=== PATIENT | male | born 1995 | race Caucasian/White ===

== ENCOUNTER 2016-10-12 12:47 | Emergency (ER) | payer BC ==
[2016-10-12 13:55] VITALS: BP 116/74
--- NOTE | 2016-10-12 14:54 | UC ---
Abdominal Pain Male HPI - HPI Summary HPI Summary: Pt presents with intermittent dull ache, and "bulge" in left upper pubic symphysis. X 2 weeks. Discomfort worsens with heavy lifting. Denies injury or trauma or discoloration to the area. Occasionally tenderness. - History of Current Complaint Chief Complaint: UCAbdominalPain Stated Complaint: ? HERNIA Time Seen by Provider: 10/12/16 14:42 Hx Obtained From: Patient Onset/Duration: Gradual Onset, Lasting Weeks Timing: Intermittent Episodes Lasting: Severity Initially: Mild Severity Currently: Mild Location: Suprapubic - left side Radiates: No Character: Aching, Dull Aggravating Factor(s):: Movement - heavy lifting Alleviating Factor(s): Rest, Spontaneous Resolution Associated Signs And Symptoms: Positive: Other - "bulge" - Risk Factors Testicular Torsion: Negative Cardiac Risk Factors: Negative - Allergies/Home Medications Allergies/Adverse Reactions: Allergies Allergy/AdvReac Type Severity Reaction Status Date / Time Penicillins Allergy Rash Verified 10/12/16 13:55 Home Medications: Home Medications NK [No Home Medications Reported] 10/12/16 [History Confirmed 10/12/16] PMH/Surg Hx/FS Hx/Imm Hx Previously Healthy: Yes - Surgical History Surgical History: None - Family History Known Family History: Positive: Other - PMH for abdominal - Social History Alcohol Use: Weekly Substance Use Type: None Smoking Status (MU): Current Some Day Smoker Type: Cigars Amount Used/How Often: once a month - Immunization History Most Recent Influenza Vaccination: no Vaccination Up to Date: Yes Review of Systems Constitutional: Negative Skin: Negative Eyes: Negative ENT: Negative Respiratory: Negative Cardiovascular: Negative Gastrointestinal: Negative Genitourinary: Other - suprapubic swelling Motor: Negative Neurovascular: Negative Musculoskeletal: Myalgia - left side supra pubic intermittent Neurological: Negative Psychological: Negative All Other Systems Reviewed And Are Negative: Yes Physical Exam Triage Information Reviewed: Yes Appearance: Well-Appearing Vital Signs: Initial Vital Signs Temp 98.9 F 10/12/16 13:50 Pulse 71 10/12/16 13:50 Resp 14 10/12/16 13:50 BP 116/74 10/12/16 13:50 Pulse Ox 99 10/12/16 13:50 Vital Signs Reviewed: Yes Eye Exam: Normal Neck exam: Normal Respiratory Exam: Normal Cardiovascular Exam: Normal Abdomen Description: Positive: Other: - half dollar size non tender "swelling" at left side suprapubic. NO inguinal hernia appreciated bilateral, no umbilical hernia appreciated, no known trauma or injury Musculoskeletal Exam: Normal Neurological Exam: Normal Psychological Exam: Normal Skin Exam: Normal Abd Pain Male Course/Dx - Differential Dx/Clinical Impression Differential Diagnosis/HQI/PQRI: Urinary Tract Infection Provider Diagnoses: ventral hernia? Discharge - Discharge Plan Condition: Stable Disposition: HOME Patient Education Materials: Ventral Hernia (ED) Forms: *Work Release Referrals: Yonathan Cuenca MD [Medical Doctor] - Shy Jordan MD [Primary Care Provider] - If Needed Additional Instructions: Please follow up with your PCP as needed. We have provided a referral to a surgeon for follow up regarding your current complaint. Please note that if your symptoms worsen please seek care immediately at your closest Emergency Department
== END 2016-10-12 15:01 | disposition home or self-care (01) ==
LOC: UCCORT 12:47
DX: R10.2 Pelvic and perineal pain (principal); R19.04 Left lower quadrant abdominal swelling, mass and lump
CPT/HCPCS: 99211; G0463

== ENCOUNTER 2017-06-06 11:02 | Emergency (ER) | payer BC ==
[2017-06-06 11:19] VITALS: BP 112/70
--- NOTE | 2017-06-06 11:40 | UC ---
Abdominal Pain Male HPI - HPI Summary HPI Summary: left lower abdominal pain x 5 days s/p hernia repair in 11/2016 left side has been having some pain at the surgery site no n/v/d/c pain with lifting , no significant swelling noted - History of Current Complaint Chief Complaint: UCAbdominalPain Stated Complaint: S/P HERNIA SURGERY 11/2016 Time Seen by Provider: 06/06/17 11:24 Hx Obtained From: Patient Onset/Duration: Gradual Onset, Lasting Days - 5, Still Present Severity Initially: Moderate Severity Currently: Moderate Pain Intensity: 2 Location: Other - left inguinal area at the hernia repair site Radiates: No Character: Aching Aggravating Factor(s): Movement Alleviating Factor(s): Rest Associated Signs And Symptoms: Negative: Diaphoresis, Fever, Cough, Chest Pain, Back Pain, Constipation, Blood in Stool, Urinary Symptoms, Decreased Appetite, Nausea, Vomiting, Diarrhea, Penile Discharge - Allergies/Home Medications Allergies/Adverse Reactions: Allergies Allergy/AdvReac Type Severity Reaction Status Date / Time Penicillins Allergy Unknown Rash Verified 06/06/17 11:11 PMH/Surg Hx/FS Hx/Imm Hx Previously Healthy: Yes - Surgical History Surgical History: Yes Surgery Procedure, Year, and Place: LEFT INGUINAL HERNIA REPAIR WITH MESH. 2016 - Family History Known Family History: Positive: None, Other - PMH for abdominal - Social History Alcohol Use: Occasionally Substance Use Type: None Smoking Status (MU): Former Smoker Type: Cigars Amount Used/How Often: once a month When Did the Patient Quit Smoking/Using Tobacco: 2016 - Immunization History Most Recent Influenza Vaccination: no Vaccination Up to Date: Yes Review of Systems Constitutional: Negative Skin: Negative Eyes: Negative ENT: Negative Respiratory: Negative Is Patient Immunocompromised?: No All Other Systems Reviewed And Are Negative: Yes Physical Exam Triage Information Reviewed: Yes Appearance: Well-Appearing, No Pain Distress, Well-Nourished Vital Signs: Initial Vital Signs Temp 98 F 06/06/17 11:12 Pulse 78 06/06/17 11:12 Resp 16 06/06/17 11:12 BP 112/70 06/06/17 11:12 Pulse Ox 100 06/06/17 11:12 Vital Signs Reviewed: Yes Eye Exam: Normal Eyes: Positive: Conjunctiva Clear ENT: Positive: Normal ENT inspection, Hearing grossly normal, Pharynx normal Neck: Positive: Supple, Nontender, No Lymphadenopathy Respiratory: Positive: Chest non-tender, Lungs clear, Normal breath sounds Cardiovascular: Positive: RRR, No Murmur, Pulses Normal Abdominal Exam: Normal Abdomen Description: Positive: Nontender, Soft, Other: - mild tenderness at the left inguinal area , at the site of the hernia repair , no hernia noted at this time Abd Pain Male Course/Dx - Differential Dx/Clinical Impression Provider Diagnoses: left inguinal pain Discharge - Discharge Plan Condition: Stable Disposition: HOME Patient Education Materials: Inguinal Hernia (ED) Forms: *Work Release Referrals: Shy Jordan MD [Primary Care Provider] - 7 Days Additional Instructions: s/p hernia repair, the exam is wnl , no swelling, mild tenderness, no bulging of the hernia or the repair site cont. with rest, no heavy lifting follow up with your surgeon if cont. to have pain or any swelling of the area
== END 2017-06-06 11:43 | disposition home or self-care (01) ==
LOC: UCCORT 11:02
DX: R10.32 Left lower quadrant pain (principal)
CPT/HCPCS: 99211; G0463

== ENCOUNTER 2018-03-09 08:20 | Emergency (ER) | payer BC ==
[2018-03-09 08:29] VITALS: BP 114/63
--- NOTE | 2018-03-09 08:47 | UC ---
Dental HPI - HPI Summary HPI Summary: 22 year old male here for dental pain for two days. Patient reports symptoms started yesterday. His tooth filling over right molar fell off few months ago and never followed up. Denied fever or chills. Reports swelling over his cheek worsened, prompting him to come to the . - History of Current Complaint Chief Complaint: UCDentalProblem Stated Complaint: TOOTH COMP. Time Seen by Provider: 03/09/18 08:33 Onset/Duration: Sudden Onset Severity: Mild Pain Intensity: 3 Aggravating Factor(s): Chewing - Allergies/Home Medications Allergies/Adverse Reactions: Allergies Allergy/AdvReac Type Severity Reaction Status Date / Time Penicillins Allergy Unknown Rash Verified 03/09/18 08:26 Home Medications: Home Medications Ibuprofen TAB* [Advil TAB*] 400 mg PO Q6H PRN 03/09/18 [History Confirmed ] PMH/Surg Hx/FS Hx/Imm Hx Previously Healthy: Yes - Surgical History Surgical History: Yes Surgery Procedure, Year, and Place: LEFT INGUINAL HERNIA REPAIR WITH MESH. 2016 - Family History Known Family History: Positive: None, Other - PMH for abdominal - Social History Alcohol Use: Occasionally Substance Use Type: None Smoking Status (MU): Current Some Day Smoker Type: Cigars Amount Used/How Often: once a month When Did the Patient Quit Smoking/Using Tobacco: 2016 - Immunization History Most Recent Influenza Vaccination: no Vaccination Up to Date: Yes Review of Systems All Other Systems Reviewed And Are Negative: Yes ENT: Positive: Dental Pain Physical Exam Triage Information Reviewed: Yes Vital Signs: Initial Vital Signs Temp 37.2 C 03/09/18 08:27 Pulse 84 03/09/18 08:27 Resp 15 03/09/18 08:27 BP 114/63 03/09/18 08:27 Pulse Ox 100 03/09/18 08:27 Vital Signs Reviewed: Yes ENT Exam: Normal Dental: Positive: Gross Decay/Caries @ - tooth 32 decay, Abscess @ - right lower , Other: - Right cheek swelling, No fluctuance Poor dentition Neck: Positive: Supple. Negative: Nuchal Rigidity Respiratory: Positive: Chest non-tender Cardiovascular Exam: Normal Cardiovascular: Positive: No Murmur Abdominal Exam: Normal Musculoskeletal Exam: Normal Neurological Exam: Normal Psychological Exam: Normal Skin Exam: Normal Dental Complaint Course/Dx - Course Course Of Treatment: Antibiotics rxed. Patient appears well, non-toxic. - Differential Dx/Diagnosis Differential Diagnosis/Dx: Dental Abscess, Dental Caries, Fractured Tooth Provider Diagnosis: Pain, dental Discharge - Sign-Out/Discharge Documenting (check all that apply): Patient Departure All imaging exams completed and their final reports reviewed: No Studies - Discharge Plan Condition: Good Disposition: HOME Prescriptions: Clindamycin Cap(NF) [Clindamycin Cap 300 mg Cap(NF)] 450 mg PO TID #10 cap Patient Education Materials: Dental Abscess (ED) Referrals: Lesly Mendiola NP [Primary Care Provider] - - Billing Disposition and Condition Condition: GOOD Disposition: Home
== END 2018-03-09 08:52 | disposition home or self-care (01) ==
LOC: UCCORT 08:20
DX: K08.89 Other specified disorders of teeth and supporting structures (principal); Z88.0 Allergy status to penicillin; F17.210 Nicotine dependence, cigarettes, uncomplicated
CPT/HCPCS: 99212; G0463

== ENCOUNTER 2018-09-03 14:23 | Emergency (ER) | payer BC ==
[2018-09-03 14:59] VITALS: BP 129/75
--- NOTE | 2018-09-03 15:04 | UC ---
Eye Complaint HPI - HPI Summary HPI Summary: 22 y/o male presents to the urgent care c/o left eye redness and itchiness and FB sensation for the past 3 days. 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 Since then he has been rubbing his eye and feel irritation w/ water and the sun. He states watery discharge . Pt states pain is 1/10 and denies fever, photophobia, visual changes, JACOBSEN, URI symptoms, SOB, chest pain, abdominal pain, N/V/D. He is not UTD w/ Tetanus vaccine. - History of Current Complaint Chief Complaint: UCEye Stated Complaint: LT EYE CONCERN Time Seen by Provider: 09/03/18 15:03 Hx Obtained From: Patient Onset/Duration: Gradual Onset, Lasting Days - 4 days, Still Present Timing: Constant Severity Initially: Mild Severity Currently: Mild Pain Intensity: 1 Pain Scale Used: 0-10 Numeric Location of Injury: Conjunctiva - left eye redness Character: Foreign Body Sensation Aggravating Factor(s): Blinking Alleviating Factor(s): Eye Drops - clear Associated Signs And Symptoms: Positive: Drainage (Clear). Negative: Vision Impairment Bilateral, Fever, Swelling - Risk Factors Penetrating Injury Risk Factor: Negative Globe Rupture Risk Factors: Negative Acute Glaucoma Risk Factors: Negative Optic Artery Occlusion Risk Factors: Negative - Allergies/Home Medications Allergies/Adverse Reactions: Allergies Allergy/AdvReac Type Severity Reaction Status Date / Time Penicillins Allergy Unknown Rash Verified 03/09/18 08:26 PMH/Surg Hx/FS Hx/Imm Hx Previously Healthy: Yes - Pt denies PMHX - Surgical History Surgical History: Yes Surgery Procedure, Year, and Place: LEFT INGUINAL HERNIA REPAIR WITH MESH. 2016 - Family History Known Family History: Positive: None - Pt denies FMHX, Other - PMH for abdominal - Social History Occupation: Employed Full-time Lives: With Family Alcohol Use: Occasionally Substance Use Type: None Smoking Status (MU): Current Some Day Smoker Type: Cigars Amount Used/How Often: once a month When Did the Patient Quit Smoking/Using Tobacco: 2016 - Immunization History Most Recent Influenza Vaccination: no Vaccination Up to Date: Yes Review of Systems All Other Systems Reviewed And Are Negative: Yes Constitutional: Positive: Negative Skin: Positive: Negative Eyes: Positive: Drainage - clear, Eye Redness - left eye redness w/ FB sensation ENT: Positive: Negative Respiratory: Positive: Negative Cardiovascular: Positive: Negative Gastrointestinal: Positive: Negative Genitourinary: Positive: Negative Motor: Positive: Negative Neurovascular: Positive: Negative Musculoskeletal: Positive: Negative Neurological: Positive: Negative Psychological: Positive: Negative Is Patient Immunocompromised?: No Physical Exam - Summary Physical Exam Summary: Vital Signs Reviewed: Yes General: Well appearing, well nourished male in no apparent pain distress Eyes: RT eye with conjunctiva clear, sclera is white. LF eye with inflamed conjunctiva and clear eye discharge. B/L PERRLA, EOMI w/o any nystagmus or strabismus. Fundi appears benign. Disks are well delineated. There are no hemorrhages or exudates. Visual acuity is 20/20 bilaterally, and visual kennedy are within normal limits. Positive FB at the mid center of left cornea observed with naked eye. ENT: Positive: Normal ENT inspection, Hearing grossly normal, Pharynx normal, Nasal congestion, Nasal drainage - clear, TMs normal - B/L external ear canal clear , TM's WNL. Negative: Tonsillar swelling, Tonsillar exudate Neck: Positive: Supple, Nontender, No Lymphadenopathy Respiratory: Positive: Chest nontender, Lungs clear, Normal breath sounds, No respiratory distress Cardiovascular: Positive: RRR, No Murmur, Pulses Normal, Brisk Capillary Refill Abdomen Description: Positive: Nontender, No Organomegaly, Soft. Negative: CVA Tenderness (R), CVA Tenderness (L) Bowel Sounds: Positive: Present Musculoskeletal: Positive: Strength Intact, ROM Intact, No Edema Neurological Exam: Normal Psychological Exam: Normal Skin Exam: Normal Triage Information Reviewed: Yes Vital Signs: Initial Vital Signs Temp 97.8 F 09/03/18 14:55 Pulse 82 09/03/18 14:55 Resp 16 09/03/18 14:55 BP 129/75 09/03/18 14:55 Pulse Ox 100 09/03/18 14:55 Eye Complaint Course/Dx - Course Course Of Treatment: 22 y/o male presents to the urgent care c/o left eye redness and itchiness and FB sensation for the past 3 days. 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 Since then he has been rubbing his eye and feel irritation w/ water and the sun. He states watery discharge . Pt states pain is 1/10 and denies fever, photophobia, visual changes, JACOBSEN, URI symptoms, SOB, chest pain, abdominal pain, N/V/D. He is not UTD w/ Tetanus vaccine. Hx obtained. Pt w/ left eye FB in the center of left cornea on examination. FB removal procedure: 2 drops of Tetracaine optha drops placed on Pts left eye, then irrigated with saline drops to flush any foreign particles, then fluorescein instillation and examination with a slit lamp. Positive FB at the center of the cornea which was removed w/ forceps w/o any difficulty, there is corneal abrasion at the same area. After procedure Pt felt better. Pt Rx Erythromycin ophthalmic ointment. First dose given at the clinic today to prevent infection. Pt given Tdap vaccine by nurse. PT advised to f/u at DR Balbuena [employer] for furtehr management of his corneal abrasion. Pt understood and agreed w/ plan of care.. - Differential Dx/Diagnosis Differential Diagnosis/HQI/PQRI: Conjunctivitis, Foreign Body, Penetrating Injury, Periorbital Cellulitis, Orbital Cellulitis Provider Diagnosis: Foreign body in cornea, left eye, initial encounter, Left corneal abrasion Discharge - Sign-Out/Discharge Documenting (check all that apply): Patient Departure - D/C home All imaging exams completed and their final reports reviewed: No Studies - Discharge Plan Condition: Stable Disposition: HOME Prescriptions: Erythromycin OPTH OINT* [Erythromycin 0.5% OPTH OINT*] 1 applic LEFT EYE TID #1 ophth.oint Patient Education Materials: Corneal Abrasion (ED), Eye Foreign Body (ED) Referrals: Lesly Mendiola, RENE [Primary Care Provider] - 1 Day Roseanne Balbuena MD [Medical Doctor] - 1 Day Additional Instructions: 1-Please apply Erythromycin ophthalmic drops as instructed to prevent infection. 2- please f/u with grain blender DR Balbuena in 1-2 days for further evaluation and treatment on your corneal abrasion 3- You were given Tdap vaccine today - Billing Disposition and Condition Condition: STABLE Disposition: Home
[2018-09-03] MEDS ORDERED: Tetracaine 0.5% OPTH.SOL 4 ML* 1 DROP BTL LEFT EYE ONE (15:17)
[2018-09-03] MEDS ORDERED: Eye Irrigation Solution 30 ML BOTTLE LEFT EYE ONE (15:17)
[2018-09-03] MEDS ORDERED: Fluorescein Sodium TOPICAL* 1 MG TEST STRIP OPHTHALMIC ONE (15:18)
[2018-09-03] MEDS ORDERED: Erythromycin OPTH OINT* APPLIC OINT LEFT EYE ONE (15:37)
[2018-09-03] MEDS ORDERED: Tetan/Diph/Pertus SYR(Tdap)* 0.5 ML SYR(BOOSTRIX) use SYR IM ONE (15:40)
== END 2018-09-03 16:01 | disposition home or self-care (01) ==
LOC: UCCORT 14:23
DX: T15.02XA Foreign body in cornea, left eye, initial encounter (principal); F17.290 Nicotine dependence, other tobacco product, uncomplicated; Z23 Encounter for immunization; X58.XXXA Exposure to other specified factors, initial encounter
CPT/HCPCS: 90471; 90715; 99212; A9270-GY; G0463